=== PATIENT | male | born 1955 | race Caucasian/White ===

== ENCOUNTER 2016-07-02 10:01 | Emergency (ER) | payer OTHER ==
[2016-07-02 09:59] LABS: INFLUENZA A NEG (NEG); INFLUENZA B NEG (NEG)
[~2016-07-02 10:01] MED LIST: AMLODIPINE PO; B/P MED PO; BENZONATATE PO; FLEXERIL PO; FLEXERIL10 M1 PO; FLEXERIL10 MG PO; FLONASE ALLERG9.9 ML; HYDROCODONE-APA1 T56 PO; LISINOPRIL PO; NORCO 5/325 TAB1 TAB PO
[2016-07-29] MEDS ORDERED: CLARITIN10 M3 (06:59)
== END 2016-07-02 10:45 | disposition home or self-care (01) ==
LOC: SED 10:01
PROVIDERS: Emergency Medicine
DX: J02.0 Streptococcal pharyngitis (principal); I10 Essential (primary) hypertension; Z79.899 Other long term (current) drug therapy
CPT/HCPCS: 87804; 87880; 96372; 99283; J0561

== ENCOUNTER 2016-07-29 07:19 | Emergency (ER) | payer OTHER ==
[~2016-07-29 07:19] MED LIST changes: +CLARITIN10 M3
[2016-07-29] MEDS ORDERED: FLEXERIL10 MG PO (08:03)
[2016-07-29] MEDS ORDERED: IBUPROFEN800 MG PO (08:03)
== END 2016-07-29 08:09 | disposition home or self-care (01) ==
LOC: SED 07:19
DX: M62.830 Muscle spasm of back (principal); I10 Essential (primary) hypertension; Z98.890 Other specified postprocedural states; Z79.899 Other long term (current) drug therapy
CPT/HCPCS: 96372; 99283; J1100; J1885